=== PATIENT | male | born 1940 | race Native Hawaiian/Other Pacific Islander ===

== ENCOUNTER 2017-01-01 15:09 | Observation (INO) | payer OTHER ==
[~2017-01-01] VITALS: Ht 175.3 cm; Wt 96.7 kg
[~2017-01-01 15:09] MED LIST: AMLO5TAB PO; AMOX875T8 PO; ASPIRIN ADULT L81 MG PO; CEFD300C2 PO; COZAAR100 MG PO; CYCL10TA35 PO; EZET10TA13 PO; FURO20TA67 PO; GLIP5TAB65 PO; LEVO0.0218 PO; LIPITOR40 MG PO; LORA10TA3 PO; METFTAB PO; METO50TA63 PO; MULTIVITAMI1 PO; NEXIUM40 M1 PO; NITR0.4S2 SL; TRILIPIX135 MG PO; WARF5TAB6
[2017-01-01] MEDS ORDERED: AMLO2.5T PO (17:17)
[2017-01-01] MEDS ORDERED: SOTA80TA2 PO (17:18)
[2017-01-01 17:22] VITALS: BP 154/78; TEMP 98.2; Ht 175.3 cm; Wt 96.7 kg
[2017-01-01 18:41] LABS: PLATELET COUNT 184 K/uL (142-355)
[2017-01-01 19:14] LABS: SODIUM 139 mmol/L (136-145)
[2017-01-01 19:15] LABS: POTASSIUM 4.6 mmol/L (3.6-5.2)
[2017-01-01 21:09] VITALS: BP 140/70; TEMP 98.5
[2017-01-02 00:21] VITALS: BP 146/62; TEMP 98.3
[2017-01-02 04:00] VITALS: BP 125/59; TEMP 97.6
[2017-01-02 07:53] VITALS: BP 136/67; TEMP 98.2
[2017-01-02 08:03] LABS: PLATELET COUNT 198 K/uL (142-355)
[2017-01-02 08:43] LABS: POTASSIUM 4.5 mmol/L (3.6-5.2); SODIUM 138 mmol/L (136-145)
[2017-01-02 12:27] VITALS: BP 134/64; TEMP 98
== END 2017-01-02 15:35 | disposition home or self-care (01) ==
LOC: MED/SURG 15:09
PROVIDERS: Emergency Medicine; ADMIT Family Medicine
DX: J44.1 Chronic obstructive pulmonary disease with (acute) exacerbation (principal); R06.09 Other forms of dyspnea; R06.02 Shortness of breath; R05 Cough; R09.02 Hypoxemia; I48.2 Chronic atrial fibrillation; E11.9 Type 2 diabetes mellitus without complications
CPT/HCPCS: 36415; 80053; 82550; 82948; 83735; 83880; 84484; 85027; 85610; 93005; 94640; 94664; 94760; 96367; 96372; 96374; 96375; 99220; G0378; G0379; J2920; J3490

== ENCOUNTER 2018-08-06 11:36 | Outpatient (CLI) | payer OTHER ==
[~2018-08-06 11:36] MED LIST changes: +AMLO2.5T PO; +SOTA80TA2 PO
== END 2018-08-06 22:23 | disposition home or self-care (01) ==
LOC: RAD 11:36
DX: J40 Bronchitis, not specified as acute or chronic (principal)

== ENCOUNTER 2019-04-02 15:39 | Outpatient (CLI) | payer OTHER | END 2019-04-02 22:33 | disposition home or self-care (01) | LOC: LABW 15:39 | DX: R19.7 Diarrhea, unspecified (principal); B96.29 Other Escherichia coli [E. coli] as the cause of diseases classified elsewhere | CPT/HCPCS: 82272; 83630; 87015; 87045; 87324; 87328; 87329; 87449; 87507; 87899 ==

== ENCOUNTER 2019-06-05 10:04 | Inpatient (IN) | payer OTHER ==
[~2019-06-05] VITALS: Ht 175.3 cm; Wt 87.5 kg
[2019-06-05] VITALS (19 sets, daily range): BP systolic 106–147; BP diastolic 47–76; TEMP 97.6–98.1; Ht 175.3 cm; Wt 87.5 kg
[2019-06-05 10:34] LABS: PLATELET COUNT 189 K/uL (142-355)
[2019-06-05 10:41] LABS: POTASSIUM 4.3 mmol/L (3.6-5.2); SODIUM 141 mmol/L (136-145)
[2019-06-05 11:10] LABS: PARTIAL THROMBOPLASTIN TIME 33.2 SECONDS (24.5-33.6)
[2019-06-06] VITALS (13 sets, daily range): BP systolic 108–131; BP diastolic 39–61; TEMP 97.6–98.1
[2019-06-06 10:43] LABS: POTASSIUM 3.9 mmol/L (3.6-5.2)
[2019-06-06 11:06] LABS: PLATELET COUNT 198 K/uL (142-355)
== END 2019-06-06 13:50 | disposition home or self-care (01) | DRG 191 ==
LOC: ED 10:04 → ICU 12:00
PROVIDERS: Hospitalist; ADMIT Internal Medicine
DX: J44.1 Chronic obstructive pulmonary disease with (acute) exacerbation (principal); I48.92 Unspecified atrial flutter; I48.2 Chronic atrial fibrillation; I25.10 Atherosclerotic heart disease of native coronary artery without angina pectoris; Z79.01 Long term (current) use of anticoagulants; K21.9 Gastro-esophageal reflux disease without esophagitis; M15.8 Other polyosteoarthritis; M51.36 Other intervertebral disc degeneration, lumbar region; E03.8 Other specified hypothyroidism; E11.42 Type 2 diabetes mellitus with diabetic polyneuropathy; R07.89 Other chest pain; D53.9 Nutritional anemia, unspecified; J32.8 Other chronic sinusitis
CPT/HCPCS: 36415; 80053; 82550; 83880; 84484; 85027; 85610; 85730; 93005; 96374; 99285; J0696; J1940

== ENCOUNTER 2019-07-24 11:52 | Emergency (ER) | payer OTHER ==
[~2019-07-24] VITALS: Ht 175.3 cm; Wt 89.4 kg
[2019-07-24 13:09] LABS: PLATELET COUNT 165 K/uL (142-355)
[2019-07-24 13:15] LABS: POTASSIUM 4.3 mmol/L (3.6-5.2); SODIUM 142 mmol/L (136-145)
[2019-07-24 13:52] LABS: PARTIAL THROMBOPLASTIN TIME 34.6 SECONDS (24.5-33.6)
[2019-07-24 16:30] VITALS: BP 125/71; TEMP 97.6
== END 2019-07-24 16:30 | disposition home or self-care (01) ==
LOC: ED 11:52
PROVIDERS: Student in an Organized Health Care Education/Training Program
DX: J40 Bronchitis, not specified as acute or chronic (principal); R06.09 Other forms of dyspnea; I48.91 Unspecified atrial fibrillation
CPT/HCPCS: 36415; 80048; 81000; 83735; 83880; 84484; 85027; 85610; 85730; 87040; 93005; 94664; 96365; 96366; 96375; 99284; J0456; J0696; J2930; Q9963

== ENCOUNTER 2019-09-29 16:00 | Outpatient (CLI) | payer OTHER | END 2019-09-29 19:10 | disposition home or self-care (01) | LOC: LABW 16:00 | DX: I48.0 Paroxysmal atrial fibrillation (principal) | CPT/HCPCS: 36415; 85610 ==

== ENCOUNTER 2019-10-28 14:10 | Outpatient (CLI) | payer OTHER | END 2019-10-28 19:43 | disposition home or self-care (01) | LOC: LABW 14:10 | DX: I48.0 Paroxysmal atrial fibrillation (principal) | CPT/HCPCS: 36415; 85610 ==

== ENCOUNTER 2019-11-05 13:31 | Outpatient (CLI) | payer OTHER | END 2019-11-05 21:47 | disposition home or self-care (01) | LOC: LABW 13:31 | DX: I48.0 Paroxysmal atrial fibrillation (principal) | CPT/HCPCS: 36415; 85610 ==

== ENCOUNTER 2019-11-12 15:50 | Outpatient (CLI) | payer OTHER | END 2019-11-12 19:38 | disposition home or self-care (01) | LOC: LABW 15:50 | DX: I48.0 Paroxysmal atrial fibrillation (principal) | CPT/HCPCS: 36415; 85610 ==

== ENCOUNTER 2019-12-10 15:45 | Outpatient (CLI) | payer OTHER | END 2019-12-10 20:50 | disposition home or self-care (01) | LOC: LABW 15:45 | DX: I48.0 Paroxysmal atrial fibrillation (principal) | CPT/HCPCS: 36415; 85610 ==

== ENCOUNTER 2019-12-18 14:01 | Outpatient (CLI) | payer OTHER | END 2019-12-18 23:06 | disposition home or self-care (01) | LOC: LABW 14:01 | DX: I48.0 Paroxysmal atrial fibrillation (principal) | CPT/HCPCS: 36415; 85610 ==

== ENCOUNTER 2020-01-07 16:40 | Outpatient (CLI) | payer OTHER | END 2020-01-07 20:30 | disposition home or self-care (01) | LOC: LAB 16:40 | DX: I48.0 Paroxysmal atrial fibrillation (principal) | CPT/HCPCS: 36415; 85610 ==

== ENCOUNTER 2020-02-05 11:18 | Outpatient (CLI) | payer OTHER | END 2020-02-05 22:45 | disposition home or self-care (01) | LOC: LABW 11:18 | DX: I48.0 Paroxysmal atrial fibrillation (principal) | CPT/HCPCS: 36415; 85610 ==